=== PATIENT | female | born 1950 | race Caucasian/White ===

== ENCOUNTER 2018-10-05 06:26 | Day surgery (SDC) | payer MEDICARE, OTHER ==
[~2018-10-05 06:26] MED LIST: Lactated Ringers 1,000 ML IV SCH
[2018-10-05] MEDS ORDERED: Propofol 200 MG/20 ML SDV ONE (07:52)
[2018-10-05] MEDS ORDERED: fentaNYL 100 MCG/2 ML SDV ONE (07:52)
[2018-10-05 08:56] VITALS: BP 135/63
--- NOTE | 2018-10-05 12:28 | OR ---
PREOPERATIVE DIAGNOSIS: Family history of colon cancer. POSTOPERATIVE DIAGNOSIS: Normal colonoscopic exam. PROCEDURE PROPOSED: Total flexible colonoscopy. PROCEDURE DONE: Total flexible colonoscopy. INDICATION: This is a 68-year-old female with a strong family history of colon cancer and she has been having colonic surveillance, having had at least 3 or 4 previous exams. She has never had any polyps herself. TECHNIQUE: The patient brought to the endoscopy suite, placed in left lateral decubitus position. She was sedated per INSIGHTS ANALYST with propofol. The flexible video colonoscope was then passed transanally and under visualization advanced to the cecum. Examination revealed a normal ascending, transverse, descending, sigmoid, and rectal colon. There were no polyps. There were no signs of any diverticulosis, colitis, or any other abnormalities. The scope was then withdrawn. The patient tolerated procedure well. FINAL IMPRESSION: 1. Essentially normal colonoscopic exam. 2. Strong family history of colon cancer. PLAN: I feel she should continue with colonic surveillance every 5 years hereafter for at least 2 more times. SCM: 10/05/2018 08:18:36 MODL: 10/05/2018 12:22:32 /[id number]
== END 2018-10-05 09:25 | disposition home or self-care (01) ==
LOC: VM.SDS 06:26
PROVIDERS: ATTEND Surgery
DX: Z12.11 Encounter for screening for malignant neoplasm of colon (principal); K21.9 Gastro-esophageal reflux disease without esophagitis; G47.33 Obstructive sleep apnea (adult) (pediatric); I25.10 Atherosclerotic heart disease of native coronary artery without angina pectoris; I10 Essential (primary) hypertension; E78.00 Pure hypercholesterolemia, unspecified; F41.9 Anxiety disorder, unspecified; F32.9 Major depressive disorder, single episode, unspecified; E66.9 Obesity, unspecified; Z68.32 Body mass index [BMI] 32.0-32.9, adult; Z95.1 Presence of aortocoronary bypass graft; Z86.010 Personal history of colon polyps; Z80.0 Family history of malignant neoplasm of digestive organs; Z79.82 Long term (current) use of aspirin; Z79.84 Long term (current) use of oral hypoglycemic drugs; Z79.899 Other long term (current) drug therapy
CPT/HCPCS: 00812; 82962; G0105; J2704; J3010; J7120

== ENCOUNTER 2019-07-27 21:32 | Emergency (ER) | payer MEDICARE, OTHER ==
--- NOTE | 2019-07-27 21:46 | EDM.PDOC ---
ED HPI GENERAL MEDICAL PROBLEM - General Chief Complaint: Trauma Stated Complaint: TRAUMA CODE Time Seen by Provider: 07/27/19 21:32 Source of Information: Reports: Patient, EMS History Limitations: Reports: No Limitations - History of Present Illness INITIAL COMMENTS - FREE TEXT/NARRATIVE: Patient presents after a fall down 6-8 stairs. States was carrying a loaded basket and slipped and fell. Did fall to her right side and hit her head. She does not believe she lost consciousness, however, doesn't remember the whole fall. "happened too fast". Did not get up from the ground, called out to her . On scene, patient responsive, oriented x3. Has mild head discomfort and eye pressure from the "bruising". Admits to upper back discomfort. Was able to get up and ambulate for EMS. History of fibromyalgia so states does ache all over but nothing else acutely hurting at this time. Denies any shortness of breath, chest discomfort, double or blurred vision. No nausea/ vomiting/abdominal pain or pelvic discomfort. GCS on arrival 15. C-Collar intact. Onset: Today, Sudden Duration: Minutes:, Constant Location: Reports: Head, Neck, Back Quality: Reports: Ache Severity: Mild Improves with: Reports: Rest Worsens with: Reports: Movement Context: Reports: Trauma Associated Symptoms: Denies: Confusion, Chest Pain, Cough, Loss of Appetite, Nausea/Vomiting, Seizure, Shortness of Breath, Syncope, Weakness Treatments ENERGY ENGINEER: Reports: Spinal Immobilization - Related Data Allergies Allergy/AdvReac Type Severity Reaction Status Date / Time salicylates Allergy Rash Verified 10/05/18 07:12 Sulfa (Sulfonamide Allergy Rash Verified 10/05/18 07:12 Antibiotics) Home Meds: Home Meds Albuterol Sulfate [Proair Hfa] 2 puff IH Q4HR PRN 05/19/17 [History] Calcium Carb/D3/Magnesium/Zinc [Angel Mag Zinc + D Tablet] 1 each PO DAILY [History] Cholecalciferol (Vitamin D3) [D-2000] 2,000 unit PO DAILY 05/19/17 [History] Dicyclomine [Bentyl] 10 mg PO TID PRN 05/19/17 [History] Glucosamine [Glucosamine Sulfate] 750 mg PO DAILY 05/19/17 [History] Isosorbide Mononitrate [Isosorbide Mononitrate ER] 60 mg PO DAILY 05/19/17 [ History] Melatonin 3 mg PO BEDTIME 05/19/17 [History] Metoprolol Succinate [Toprol XL] 100 mg PO DAILY 05/19/17 [History] Nitroglycerin [Nitrostat] 0.4 mg SL ASDIRECTED PRN 05/19/17 [History] [place]-3 Acid Ethyl Esters [Lovaza] 2 gm PO BID 05/19/17 [History] Ranitidine [Zantac] 150 mg PO BID 05/19/17 [History] Triamterene/Hydrochlorothiazid [Triamterene-HCTZ 37.5-25 MG] 1 each PO DAILY 01/28 [History] metFORMIN [Glucophage] 500 mg PO BIDMEALS 05/19/17 [History] tiZANidine HCl [Zanaflex] 2 mg PO TID PRN 05/19/17 [History] Multivitamin [Multi-Vitamin Daily] 1 tab PO DAILY 10/04/18 [History] Past Medical History HEENT History: Reports: Allergic Rhinitis, Other (See Below) Other HEENT History: Post nasal drip. Burning mouth syndrome Cardiovascular History: Reports: Bypass, CAD, High Cholesterol, Hypertension Respiratory History: Reports: Sleep Apnea, Other (See Below) Other Respiratory History: Chronic cough Gastrointestinal History: Reports: Colon Polyp, GERD, Irritable Bowel Syndrome Genitourinary History: Reports: None ICT BUSINESS ANALYST History: Reports: Other (See Below) Other ICT BUSINESS ANALYST History: Atrophic vaginitis Musculoskeletal History: Reports: Back Pain, Chronic, Fibromyalgia Neurological History: Reports: Other (See Below) Other Neuro History: Parasthesia. Periodic limb movement disorder Psychiatric History: Reports: Anxiety, Depression, Panic Attack Endocrine/Metabolic History: Reports: Obesity/BMI 30+, Other (See Below) Other Endocrine/Metabolic History: Fasting Hyperglycemia Hematologic History: Reports: Blood Transfusion(s) Immunologic History: Reports: None Oncologic (Cancer) History: Reports: None Dermatologic History: Reports: Other (See Below) Other Dermatologic History: Alopecia. Dermatitis. Onychomycosis - Past Surgical History Cardiovascular Surgical History: Reports: Coronary Artery Bypass, Coronary Artery Stent Respiratory Surgical History: Reports: None GI Surgical History: Reports: Colonoscopy Female Surgical History: Reports: Hysterectomy, Salpingo-Oophorectomy Endocrine Surgical History: Reports: None Musculoskeletal Surgical History: Reports: None Review of Systems - Review of Systems Review Of Systems: See Below Constitutional: Denies: Weakness Eyes: Denies: Blurred Vision, Pain, Photophobia, Vision Change Ears: Reports: Dizziness (mild but states is chronic for her). Denies: Pain, Bloody Discharge Nose: Denies: Clots, Epistaxis Mouth/Throat: Reports: Other (dried blood on lip from biting lip). Denies: Difficulty Swallowing Respiratory: Denies: Shortness of Breath, Pleuritic Chest Pain Cardiovascular: Denies: Chest Pain, Palpitations, Syncope GI/Abdominal: Denies: Abdominal Pain, Nausea, Vomiting Genitourinary: Reports: No Symptoms Musculoskeletal: Reports: Back Pain. Denies: Neck Pain Skin: Reports: Bruising Neurological: Reports: Dizziness. Denies: Headache, Weakness Psychiatric: Reports: No Symptoms ED EXAM, GENERAL - Physical Exam Exam: See Below Free Text/Narrative:: Primary patient survey: Airway patent, vocalizing. Oriented x3, appropriate. Lung sounds clear Heart rate regular No pelvic pain with palpation C-collar intact, does admit to mild discomfort with palpation GCS 15 Exam Limited By: No Limitations General Appearance: Alert, WD/WN, No Apparent Distress Eye Exam: Bilateral Eye: EOMI, PERRL Ears: Normal External Exam, Normal TMs Nose: Normal Inspection, Normal Mucosa, No Blood Throat/Mouth: Normal Inspection, Normal Oropharynx, Other (dried blood to lip, superficial abrasion noted) Head: Normocephalic, Other (hematoma noted to right forehead above brow, tender) Neck: Normal Inspection, Supple, Tender Lateral, Other (c-collar intact) Respiratory/Chest: No Respiratory Distress, Lungs Clear, Normal Breath Sounds Cardiovascular: Regular Rate, Rhythm GI/Abdominal: Normal Bowel Sounds, Soft, Non-Tender Extremities: Normal Inspection, Normal Range of Motion, Normal Capillary Refill Neurological: Alert, Oriented Skin Exam: Warm, Dry Course - Orders/Labs/Meds Orders: Active Orders 24 hr Category Date Time Status Cervical Spine wo Cont [CT] Stat Exams 07/27/19 21:45 Ordered Chest Abdomen Pelvis w Cont [CT] Stat Exams 07/27/19 21:45 Ordered Head wo Cont [CT] Stat Exams 07/27/19 21:45 Ordered Labs: Laboratory Tests 07/27/19 07/27/19 07/27/19 Range/Units 21:44 21:44 21:44 WBC 5.9 (4.0-10.0) x10^3/uL RBC 4.27 (4.00-5.50) x10^6/uL Hgb 12.6 (12.0-16.0) g/dL Hct 36.4 (33.0-47.0) % MCV 85.2 (78.0-93.0) fL MCH 29.5 (26.0-32.0) pg MCHC 34.6 (32.0-36.0) g/dL RDW Coeff of [place] 13.8 (10.0-15.0) % Plt Count 109 L (130-400) x10^3/uL Neut % (Auto) 57.3 (50.0-80.0) % Lymph % (Auto) 28.7 (25.0-50.0) % [place] % (Auto) 10.6 (2.0-11.0) % Eos % (Auto) 3.1 (0.0-4.0) % Baso % (Auto) 0.3 (0.2-1.2) % PT 10.0 (10.0-12.8) SEC INR 0.9 L (2.0-3.5) APTT 23.6 L (24.0-36.0) SEC Sodium 142 (136-145) mmol/L Potassium 3.4 L (3.5-5.1) mmol/L Chloride 103 (98-107) mmol/L Carbon Dioxide 24 (21-32) mmol/L Anion Gap 18.4 (10-20) mmol/L BUN 11 (7-18) mg/dL Creatinine 0.9 (0.55-1.02) mg/dL Est Cr Clr Drug Dosing TNP Estimated GFR (MDRD) > 60 Glucose 142 H (74-106) mg/dL Calcium 8.9 (8.5-10.1) mg/dL Meds: Medications Discontinued Medications Generic Name Dose Route Start Last Admin Trade Name Freq PRN Reason Stop Dose Admin Iopamidol 100 ml 07/27/19 22:08 07/27/19 22:16 Isovue-300 (61%) IVPUSH 07/27/19 22:09 100 ml ONETIME ONE Administration - Re-Assessments/Exams Free Text/Narrative Re-Assessment/Exam: 07/27/19 22:27 Patient doing well. Returned from CT. Labs are all relatively stable, glucose noted at 142. Potassium 3.4. Patient denies any change. GCS remains 15 07/27/19 23:16 Radiology reports negative, no acute findings. C-collar removed. Patient doing well. GCS 15 Departure - Departure Time of Disposition: 23:18 Disposition: Home, Self-Care 01 Condition: Fair Clinical Impression: Contusion of face, Back pain - Discharge Information *PRESCRIPTION DRUG MONITORING PROGRAM REVIEWED*: No *COPY OF PRESCRIPTION DRUG MONITORING REPORT IN PATIENT [place]: No Referrals: Chhaya Guevara MD [Primary Care Provider] - Forms: ED Department Discharge Additional Instructions: 1. Rest 2. Tylenol or ibuprofen for discomfort 3. Ice or heat to affected areas 4. Follow up with Primary Care Provider if persisting concerns or changes Sepsis Event Note - Focused Exam Date Exam was Performed: 07/27/19 Time Exam was Performed: 23:24 - My Orders Last 24 Hours: My Active Orders 07/27/19 21:45 Cervical Spine wo Cont [CT] Stat Chest Abdomen Pelvis w Cont [CT] Stat Head wo Cont [CT] Stat - Assessment/Plan Last 24 Hours: My Active Orders 07/27/19 21:45 Cervical Spine wo Cont [CT] Stat Chest Abdomen Pelvis w Cont [CT] Stat Head wo Cont [CT] Stat
[2019-07-27 22:05] LABS: ANION GAP 18.4 mmol/L (10-20); CHLORIDE,CL 103 mmol/L (98-107); SODIUM,NA 142 mmol/L (136-145)
[2019-07-27] MEDS ORDERED: Iopamidol 612 MG/ML 100 ML Bottle IVPUSH ONE (22:08)
--- NOTE | 2019-07-28 09:07 | CT ---
[id number] CT/CT Head WO IV EXAM: CT Head WO IV CLINICAL DATA: TRAUMA/ BACK PAIN COMPARISON STUDY: None FINDINGS: No intracranial hemorrhage, extra-axial fluid collection, mass, or acute ischemia. Generalized parenchymal atrophy with scattered areas of nonspecific white matter disease, commonly seen as sequela of chronic microvascular ischemia. Right frontal scalp hematoma without underlying calvarial fracture.. Paranasal sinuses and mastoid air cells are clear. IMPRESSION: No acute intracranial findings. Brayden Cardona DO 07/28/19 0905 Thank you for allowing us to participate in the care of your patient.
--- NOTE | 2019-07-28 09:08 | CT ---
[id number] CT/CT Cervical Spine WO IV Exam: CT Cervical Spine WO IV CLINICAL DATA: FALL. COMPARISON: None. FINDINGS: No fracture or subluxation is seen. The C1-C2 articulation is unremarkable. The prevertebral soft tissues are within normal limits. Multilevel degenerative changes of the cervical spine including loss of disc space height, endplate osteophytosis and facet arthropathy. These findings are most pronounced at C5-C6. IMPRESSION: NO ACUTE FRACTURE OR SUBLUXATION. Brayden Cardona DO 07/28/19 0907 Thank you for allowing us to participate in the care of your patient.
--- NOTE | 2019-07-28 09:14 | CT ---
[id number] CT/CT Chest Abdomen Pelvis W IV EXAM: CT Chest Abdomen Pelvis W IV CLINICAL DATA: TRAUMA/BACK PAIN COMPARISON STUDY: None. FINDINGS: No pleural effusion, pneumothorax, or pulmonary contusion. No parenchymal airspace consolidation. No pneumomediastinum. No pericardial effusion. No lymphadenopathy. Abdomen and pelvis: Liver, spleen, pancreas, adrenal glands, and kidneys are unremarkable. Cholelithiasis without evidence of acute cholecystitis. No evidence of bowel injury, obstruction, or inflammation. Urinary bladder is intact. No lymphadenopathy, free fluid, or pneumoperitoneum. Bones and soft tissues: No fracture, compression deformity, or osseous lesion. IMPRESSION: No acute findings in the chest, abdomen, or pelvis. Brayden Cardona DO 07/28/19 0913 Thank you for allowing us to participate in the care of your patient.
== END 2019-07-27 23:39 | disposition home or self-care (01) ==
LOC: VM.ED 21:32
DX: S00.83XA Contusion of other part of head, initial encounter (principal); M54.6 Pain in thoracic spine; I10 Essential (primary) hypertension; I25.10 Atherosclerotic heart disease of native coronary artery without angina pectoris; E78.00 Pure hypercholesterolemia, unspecified; K21.9 Gastro-esophageal reflux disease without esophagitis; F41.0 Panic disorder [episodic paroxysmal anxiety]; F32.9 Major depressive disorder, single episode, unspecified; E66.9 Obesity, unspecified; Z95.5 Presence of coronary angioplasty implant and graft; Z88.8 Allergy status to other drugs, medicaments and biological substances; Z88.2 Allergy status to sulfonamides; Z79.84 Long term (current) use of oral hypoglycemic drugs; Z79.899 Other long term (current) drug therapy; W10.8XXA Fall (on) (from) other stairs and steps, initial encounter
CPT/HCPCS: 36415; 70450; 71260; 72125; 74177; 80048; 85025; 85610; 85730; 99284; Q9967

== ENCOUNTER 2024-07-15 11:00 | Day surgery (SDC) | payer MEDICARE, OTHER ==
[2024-07-15] MEDS ORDERED: Propofol 200 MG/20 ML SDV ONE ×2 (11:01→12:17)
[2024-07-15] MEDS ORDERED: fentaNYL 100 MCG/2 ML SDV ONE (11:02)
[2024-07-15] MEDS: Lactated Ringers 1,000 ML IV SCH (11:15)
[2024-07-15 12:44] VITALS: PULSE 67
[2024-07-15 12:49] VITALS: BP 146/64
== END 2024-07-15 13:45 | disposition home or self-care (01) ==
LOC: VM.SDS 11:00
PROVIDERS: ATTEND Surgery
DX: Z12.11 Encounter for screening for malignant neoplasm of colon (principal); D12.2 Benign neoplasm of ascending colon; D12.6 Benign neoplasm of colon, unspecified; I10 Essential (primary) hypertension; K21.9 Gastro-esophageal reflux disease without esophagitis; I25.10 Atherosclerotic heart disease of native coronary artery without angina pectoris; F41.9 Anxiety disorder, unspecified; E66.812 Obesity, class 2; Z68.37 Body mass index [BMI] 37.0-37.9, adult; Z79.899 Other long term (current) drug therapy
CPT/HCPCS: 00811; 88305; 99100; J2704; J3010; J7120